=== PATIENT | male | born 1960 | race African-American/Black ===

== ENCOUNTER 2016-10-01 14:39 | Emergency (ER) | payer OTHER, BC ==
[~2016-10-01] VITALS: Ht 190.5 cm; Wt 152.0 kg
[~2016-10-01 14:39] MED LIST: SPIR25TA PO
--- NOTE | 2016-10-01 15:31 | PHYS DOC ---
Past History Past Medical History: Hypertension, Other Past Surgical History: Other Smoking: Non-smoker Alcohol Use: Rarely Drug Use: None Adult General Chief Complaint Chief Complaint: NEEDLE STICK HPI HPI Patient is a 56-year-old male who presents ambulatory from [facility] after a needlestick. The patient was going through the bag of an inmate when he was stuck in the right thumb by a small needle. The patient says the needle was on something that didn't look like a syringe to him. The inmate shrugged and said it didn't belong to him. The patient states the needle stick was just deep enough to cause a small red varghese, it did not draw any blood and he hardly felt it. Review of Systems Review of Systems Constitutional: Denies fever or chills [] Integument: Denies additional skin injury Allergies Allergies Allergies Coded Allergies Type Severity Reaction Last Updated Verified No Known Drug Allergies 08/07/13 No Physical Exam Physical Exam Constitutional: Well developed, well nourished, no acute distress, non-toxic appearance. Alert, mentating normally. HENT: Normocephalic, atraumatic, bilateral external ears normal, nose normal. [ ] Eyes: conjunctiva normal, no discharge. [] Neck: Normal range of motion, no stridor. [] Skin: Warm, dry, no erythema, no rash. Extremities: Right thumb: A pinpoint red spot located over the radial aspect of the proximal phalanx. No bleeding. Consistent with history. Neurologic: Alert and oriented X 3, normal motor function, normal sensory function, no focal deficits noted. [] EKG EKG [] Radiology/Procedures Radiology/Procedures [] Course & Med Decision Making Course & Med Decision Making Pertinent Labs and Imaging studies reviewed. (See chart for details) Patient believes he has had hepatitis B immunization series. He's never had hepatitis C or HIV to his knowledge. We discussed recommendations. After review of CDC guidelines, I believe his needle stick is low risk for HIV transmission. We talked about the use of post exposure prophylaxis for HIV in light of a low risk needle stick and the patient prefers to not begin post exposure prophylaxis. Today, we yessi the recommended HIV antibody, hepatitis C antibody, hepatitis B antigen and antibody. Patient will follow up with occupational med clinic. [] Dragon Disclaimer Dragon Disclaimer This chart was dictated in whole or in part using Voice Recognition software in a busy, high-work load, and often noisy Emergency Department environment. It may contain unintended and wholly unrecognized errors or omissions. Departure Departure: Impression: Primary Impression: Needle stick injury of finger Disposition: 01 HOME, SELF-CARE Condition: STABLE Referrals: LUZ MARINA BARFIELD APRN (PCP) Patient Instructions: Needle Stick Injury, [id number] GRACIE LIZAMA MD Oct 01, 2016 15:31
[2016-10-01 15:40] VITALS: BP 148/55
[2016-10-02 20:11] LABS: HCV ANTIBODY <0.1 s/co ratio (0.0-0.9); HEP B SURFACE ABDY Non Reactive (.)
== END 2016-10-01 15:42 | disposition home or self-care (01) ==
LOC: ER 14:39
DX: S69.91XA Unspecified injury of right wrist, hand and finger(s), initial encounter (principal); I10 Essential (primary) hypertension; W46.0XXA Contact with hypodermic needle, initial encounter; Y93.89 Activity, other specified; Y99.0 Civilian activity done for income or pay; Y92.89 Other specified places as the place of occurrence of the external cause
CPT/HCPCS: 36415; 86703; 86706; 86803; 87340; 99284

== ENCOUNTER 2018-07-02 14:53 | Emergency (ER) | payer BC, OTHER ==
[~2018-07-02] VITALS: Ht 190.5 cm; Wt 152.0 kg
--- NOTE | 2018-07-02 15:42 | PHYS DOC ---
Past History Past Medical History: Hypertension, Other Past Surgical History: Other Smoking: Non-smoker Alcohol Use: Rarely Drug Use: None Adult General Chief Complaint Chief Complaint: KNEE INJURY HPI HPI Patient is a 8-year-old male who presents with left knee pain. Patient was going down wet steps at work when he slipped down the last 3 sustaining an injury to his knee. Since that time he has been unable to extend the knee. Once it is extended by using his hands he is able to lock it out and pivoted and transfer. Unable to walk. No numbness, tingling, or paresthesias. He has a remote history of arthroscopic surgery to it approximately 12 years ago performed in [place].[] Review of Systems Review of Systems Constitutional: Denies fever or chills [] Eyes: Denies change in visual acuity, redness, or eye pain [] HENT: Denies nasal congestion or sore throat [] Respiratory: Denies cough or shortness of breath [] Cardiovascular: No chest pain or palpitations[] GI: Denies abdominal pain, nausea, vomiting, bloody stools or diarrhea [] : Denies dysuria or hematuria [] Musculoskeletal: Denies back pain, see history of present illness[] Integument: Denies rash or skin lesions [] Neurologic: Denies headache, focal weakness or sensory changes [] Endocrine: Denies polyuria or polydipsia [] All other systems were reviewed and found to be within normal limits, except as documented in this note. Allergies Allergies Allergies Coded Allergies Type Severity Reaction Last Updated Verified No Known Drug Allergies 07/02/18 No Physical Exam Physical Exam Constitutional: Well developed, well nourished, no acute distress, non-toxic appearance. [] HENT: Normocephalic, atraumatic, bilateral external ears normal, oropharynx moist, no oral exudates, nose normal. [] Eyes: PERRLA, EOMI, conjunctiva normal, no discharge. [] Neck: Normal range of motion, no tenderness, supple, no stridor. [] Cardiovascular:Heart rate regular rhythm, no murmur [] Lungs & Thorax: Bilateral breath sounds clear to auscultation [] Abdomen: Bowel sounds normal, soft, no tenderness, no masses, no pulsatile masses. [] Skin: Warm, dry, no erythema, no rash. [] Back: No tenderness, no CVA tenderness. [] Extremities: Left knee has some edema, a palpable step off in the soft tissues superior to the patella. There is no extension, patient is unable to hold the lower leg up against gravity. He is distal neurovascularly intact. There is no hip or ankle pain. The other 3 extremities show no tenderness, no cyanosis, no clubbing, ROM intact, no edema. [] Neurologic: Alert and oriented X 3, normal motor function, normal sensory function, no focal deficits noted. [] Psychologic: Affect normal, judgement normal, mood normal. [] Current Patient Data Vital Signs Vital Signs Date Time Temp Pulse Resp B/P (MAP) Pulse Ox O2 Delivery O2 Flow Rate FiO2 07/02/18 14:56 98.4 80 16 95 Room Air EKG EKG [] Radiology/Procedures Radiology/Procedures KNEE LEFT 4V, TIBIA FIBULA LEFT Clinical Indication: fall down stairs today Comparison: None. Findings: There is lateral subluxation of the patella on the sunrise view. There is patella baja. The quadriceps tendon is not well seen. No knee joint effusion is appreciated. No acute fracture of the knee. There is mild medial compartment narrowing and marginal osteophyte formation. There is no acute fracture of the tibia or fibula. No soft tissue swelling of the calf. Ankle joint appears intact. IMPRESSION: 1. No acute fracture. 2. There is patella baja. The quadriceps tendon is not well seen. Cannot exclude tendon injury.[] Course & Med Decision Making Course & Med Decision Making Pertinent Labs and Imaging studies reviewed. (See chart for details) ED course: Patient arrived, was placed in bed, and tolerated exam well. He was transferred to and from x-ray with any complications. After the return of the imaging studies, consultation was made with orthopedic surgery. Patient has close follow-up tomorrow with them. Findings were discussed with the patient. Patient was placed in a knee immobilizer. He was trained in crutch use. All questions were answered. Patient was distal neurovascularly intact after the splint was applied. He was discharged in improved condition. Medical decision making: Patient appears to have a quadriceps tendon tear. There is no evidence of neuro or vascular compromise. No evidence of a fracture nor open fracture.[] Dragon Disclaimer Dragon Disclaimer This electronic medical record was generated, in whole or in part, using a voice recognition dictation system. Departure Departure: Impression: Primary Impression: Quadriceps tendon rupture Disposition: 01 HOME, SELF-CARE Condition: IMPROVED Referrals: LUZ MARINA BARFIELD APRN (PCP) Patient Instructions: Crutch Use, Quadriceps Tendon Tear, Disruption with Rehab -[facility] Additional Instructions: Follow-up with Dr. Gonzalez tomorrow morning. Address: [address] [place] [address] Return to the ER if worsening pain or any other concerns. Scripts Hydrocodone Bit/Acetaminophen (NORCO 5-325 TABLET) 1 Each Tablet 1-2 TAB PO Q4-6HRS for severe pain, #30 TAB Prov: LEWIS ASHLEY DO 07/02/18 Problem Qualifiers Primary Impression: Quadriceps tendon rupture Encounter type: initial encounter Laterality: left Qualified Codes: S76.112A - Strain of left quadriceps muscle, fascia and tendon, initial encounter LEWIS ASHLEY DO Jul 02, 2018 15:42
[2018-07-02] MEDS ORDERED: HYDR-3165 PO (16:02)
[2018-07-02 16:12] VITALS: BP 153/85
== END 2018-07-02 16:12 | disposition home or self-care (01) ==
LOC: ER 14:53
DX: S76.112A Strain of left quadriceps muscle, fascia and tendon, initial encounter (principal); I10 Essential (primary) hypertension; W10.8XXA Fall (on) (from) other stairs and steps, initial encounter; Y93.89 Activity, other specified; Y92.89 Other specified places as the place of occurrence of the external cause; Y99.8 Other external cause status
CPT/HCPCS: 29505; 73564; 73590; 99284; 99283-25